=== PATIENT | male | born 1975 | race Two or more races ===

== ENCOUNTER → 2021-05-15 09:48 | Outpatient (BNVA) | payer OTHER, SELFPAY | PROVIDERS: Visit Provider Physician Assistant Medical | DX: M77.11 Lateral epicondylitis, right elbow (principal) | CPT/HCPCS: 99202 ==

== ENCOUNTER → 2021-06-09 11:21 | Outpatient (BNVA) | payer OTHER, SELFPAY | PROVIDERS: Visit Provider Internal Medicine | DX: M77.11 Lateral epicondylitis, right elbow (principal) | CPT/HCPCS: 99213 ==

== ENCOUNTER → 2021-06-27 10:47 | Outpatient (BNVA) | payer OTHER, SELFPAY | PROVIDERS: Visit Provider Internal Medicine | CPT/HCPCS: 99213 ==

== ENCOUNTER → 2021-07-07 09:51 | Outpatient (BNVA) | payer OTHER, SELFPAY | PROVIDERS: Visit Provider Internal Medicine | DX: M77.11 Lateral epicondylitis, right elbow (principal) | CPT/HCPCS: 99213 ==

== ENCOUNTER 2025-01-30 10:16 | Outpatient (RCR) | payer OTHER, SELFPAY | END 2025-03-28 12:49 | disposition home or self-care (01) | LOC: HO.OTS 10:16 | PROVIDERS: PCP Family Medicine; Visit Provider Physician Assistant | DX: S52.502S Unspecified fracture of the lower end of left radius, sequela (principal) | CPT/HCPCS: 97110; 97165 ==